=== PATIENT | male | born 1990 | race American Indian/Alaskan Native ===

== ENCOUNTER 2019-04-06 05:20 | Emergency (ER) | payer SELFPAY ==
[2019-04-06] MEDS ORDERED: IBUPROFEN 800 MG TAB PO ONE (07:37)
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
[2019-04-06 09:51] VITALS: BP 134/96
== END 2019-04-06 09:49 | disposition home or self-care (01) ==
LOC: ED 05:20
DX: S22.42XA Multiple fractures of ribs, left side, initial encounter for closed fracture (principal); Y04.8XXA Assault by other bodily force, initial encounter; Y93.89 Activity, other specified; Y92.89 Other specified places as the place of occurrence of the external cause; Y99.8 Other external cause status
CPT/HCPCS: 71111

== ENCOUNTER 2021-11-20 18:20 | Emergency (ER) | payer SELFPAY | END 2021-11-20 19:44 | disposition left against medical advice (07) | LOC: ED 18:20 | DX: M79.604 Pain in right leg (principal); Z53.21 Procedure and treatment not carried out due to patient leaving prior to being seen by health care provider ==

== ENCOUNTER 2021-11-21 06:58 | Emergency (ER) | payer SELFPAY ==
[2021-11-21 07:16] VITALS: BP 149/100
[2021-11-21] MEDS ORDERED: GABAPENTIN 300 MG CAP PO ONE (08:05)
[2021-11-21] MEDS ORDERED: KETOROLAC 10 MG TAB PO ONE (08:05)
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
[2021-11-21] MEDS ORDERED: GABAPENTIN 100 MG CAP PO NR (09:00)
== END 2021-11-21 09:39 | disposition home or self-care (01) ==
LOC: ED 06:58
DX: M79.604 Pain in right leg (principal)
CPT/HCPCS: 99282